=== PATIENT | male | born 1940 | race Caucasian/White ===

== ENCOUNTER 2024-01-12 05:48 | Emergency (ER) | payer OTHER ==
[~2024-01-12] VITALS: Ht 180.3 cm; Wt 79.4 kg
[~2024-01-12 05:48] MED LIST: AMLO5 PO; ASPI325 PO; AVALIDE PO; BISO5 PO; BISOPROL PO; CEPH500 PO; CLOP75 PO; FOLI400 PO; IBUP800 PO; IRBHYD300 PO; LISI20 PO; LISINOPRIL PO; METCELP PO; MULVITMINF PO; OMEGA 3 PO; OXYACE5T PO; POLY17UD PO; PROC10 PO; RANI150 PO; SIMV20 PO; STOMUL PO; TAMS.4ER PO; [UNRECOGNIZED DRUG - OTHER] PO
[2024-01-12 06:24] LABS: BASOPHILS ABSOLUTE AUTO 0.03 K/mm3 (0.00-0.23); BASOPHILS PERCENT AUTO 0 % (0-2); EOSINOPHILS ABSOLUTE AUTO 0.03 K/mm3 (0.00-0.68); EOSINOPHILS PERCENT AUTO 0 % (0-6); Hematocrit 42.6 % (37.0-53.0); Hemoglobin 14.2 g/dL (13.5-17.5); IMMATURE GRAN ABSOLUTE AUTO 0.05 K/mm3 (0.00-0.10); IMMATURE GRAN PERCENT AUTO 0 % (0-1); LYMPHOCYTES ABSOLUTE AUTO 0.75 K/mm3 (0.84-5.20); LYMPHOCYTES PERCENT AUTO 6 % (21-46); MONOCYTES ABSOLUTE AUTO 1.04 K/mm3 (0.16-1.47); MONOCYTES PERCENT AUTO 8 % (4-13); Mean Corpuscular HGB Conc 33.3 g/dL (31.5-36.5); Mean Corpuscular Volume 81 fL (80-100); Mean Platelet Volume 10.1 fL (9.1-12.4); NEUTROPHILS ABSOLUTE AUTO 11.07 K/mm3 (1.96-9.15); NEUTROPHILS PERCENT AUTO 85 % (41-73); Platelet Count 130 K/mm3 (150-400); RDW Coefficient Variation 20.6 % (11.7-14.2); RDW Standard Deviation 57.6 fL (35.1-46.3); Red Blood Cell Count 5.26 M/mm3 (4.30-5.90); White Blood Cell Count 12.97 K/mm3 (4.00-11.30)
[2024-01-12 06:40] LABS: Albumin, Blood 3.7 g/dL (3.4-5.0); Bilirubin, Total 1.1 mg/dL (0.1-1.0); Bun/Creatinine Ratio 22.5 (12.0-20.0); Calcium, Blood 9.6 mg/dL (8.5-10.1); Creatinine, Blood 1.82 mg/dL (0.60-1.20); Globulin, Blood 3.8 g/dL (2.2-4.0); Potassium, Blood 3.6 mmol/L (3.5-5.5); Total Protein, Blood 7.5 g/dL (6.4-8.2)
[2024-01-12] MEDS ORDERED: NS 1,000 ML IV SCH (07:15)
[2024-01-12] MEDS ORDERED: Ondansetron HCl 2 MG / ML 2ML Vial IV ONE (07:15)
[2024-01-12] MEDS ORDERED: Ketorolac Tromethamine 30mg Vial IV ONE (07:15)
[2024-01-12] MEDS ORDERED: SULFAMETHOXAZO1 EAC1 PO (07:18)
[2024-01-12 07:48] LABS: BASOPHILS ABSOLUTE AUTO 0.03 K/mm3 (0.00-0.23); BASOPHILS PERCENT AUTO 0 % (0-2); EOSINOPHILS ABSOLUTE AUTO 0.02 K/mm3 (0.00-0.68); EOSINOPHILS PERCENT AUTO 0 % (0-6); Hematocrit 40.3 % (37.0-53.0); Hemoglobin 13.8 g/dL (13.5-17.5); IMMATURE GRAN ABSOLUTE AUTO 0.06 K/mm3 (0.00-0.10); IMMATURE GRAN PERCENT AUTO 1 % (0-1); LYMPHOCYTES ABSOLUTE AUTO 0.55 K/mm3 (0.84-5.20); LYMPHOCYTES PERCENT AUTO 4 % (21-46); MONOCYTES ABSOLUTE AUTO 0.99 K/mm3 (0.16-1.47); MONOCYTES PERCENT AUTO 8 % (4-13); Mean Corpuscular HGB 27.3 pg (26.0-34.0); Mean Corpuscular HGB Conc 34.2 g/dL (31.5-36.5); Mean Corpuscular Volume 80 fL (80-100); Mean Platelet Volume 10.3 fL (9.1-12.4); NEUTROPHILS ABSOLUTE AUTO 10.94 K/mm3 (1.96-9.15); NEUTROPHILS PERCENT AUTO 87 % (41-73); Platelet Count 126 K/mm3 (150-400); RDW Coefficient Variation 20.5 % (11.7-14.2); RDW Standard Deviation 57.6 fL (35.1-46.3); Red Blood Cell Count 5.06 M/mm3 (4.30-5.90); White Blood Cell Count 12.59 K/mm3 (4.00-11.30)
[2024-01-12 08:02] LABS: Albumin, Blood 3.5 g/dL (3.4-5.0); Albumin/Globulin Ratio 0.9 (0.8-1.8); Calcium, Blood 9.3 mg/dL (8.5-10.1); Creatinine, Blood 1.71 mg/dL (0.60-1.20); Globulin, Blood 3.7 g/dL (2.2-4.0); Magnesium, Blood 2.2 mg/dL (1.6-2.4); Potassium, Blood 3.5 mmol/L (3.5-5.5); Total Protein, Blood 7.2 g/dL (6.4-8.2)
[2024-01-12 09:53] LABS: Source, Urine Clean Catch
[2024-01-12 09:59] LABS: Appearance, Urine Hazy (Clear); Blood, Urine 5+ (Neg); Color, Urine Amber (P-Yellow); Glucose Qualitative, Urine 1+ (Neg); Ketones, Urine 1+ (Neg); Leukocyte Esterase, Urine 2+ (Neg); Nitrite, Urine Pos (Neg); Protein, Urine 3+ (Neg); Specific Gravity, Urine 1.015 (1.003-1.022); Urobilinogen, Urine 2+ (Normal)
[2024-01-12 10:09] LABS: Bilirubin, Urine 1+ (Neg)
[2024-01-12 10:10] LABS: Bacteria Few /hpf; Red Blood Cells, Urine TNTC /hpf (0-2); Squamous Epithelial Cells Not Seen /hpf (Few)
[2024-01-12] MEDS ORDERED: Cefdinir 300 MG Cap PO ONE (11:00)
[2024-01-12 11:35] LABS: Calcium, Ionized (POC) 1.17 mmol/L (1.10-1.46); Chloride (POC) 106 mmol/L (98-108); Creatinine (POC) 1.7 mg/dL (0.8-1.3); Glucose (ISTAT POC) 117 mg/dL (70-99); Hemoglobin (POC) 12.6 g/dL (13.5-17.5); Potassium (POC) 3.9 mmol/L (3.5-5.5); Sodium (POC) 139 mmol/L (135-148); Total CO2 (POC) 25 mmol/L (21-32)
[2024-01-12] MEDS ORDERED: DOCU100 PO (12:12)
[2024-01-12] MEDS ORDERED: SENN187 PO (12:12)
[2024-01-12] MEDS ORDERED: CEFD300 PO (12:12)
[2024-01-12 12:30] VITALS: BP 143/83
[2024-01-29] MEDS ORDERED: CEFP200 PO (02:02)
[2024-01-29] MEDS ORDERED: PROBIOTIC1 EA13 PO (02:03)
[2024-01-29] MEDS ORDERED: LOPE2C PO (02:03)
== END 2024-01-12 13:06 | disposition home or self-care (01) ==
LOC: ER 05:48
PROVIDERS: Student in an Organized Health Care Education/Training Program
DX: N30.90 Cystitis, unspecified without hematuria (principal); N17.9 Acute kidney failure, unspecified; R33.9 Retention of urine, unspecified; Z79.899 Other long term (current) drug therapy; Z79.82 Long term (current) use of aspirin; I10 Essential (primary) hypertension
CPT/HCPCS: 51702; 51798; 74177; 80047; 80053; 81001; 83735; 85014; 85025; 87086; 96361-59; 96374-59; 96375-59; 99284-25; A9270; J1885; J2405; J7030; Q9967

== ENCOUNTER 2024-09-21 08:30 | Day surgery (SDC) | payer OTHER ==
[2024-09-21] VITALS (8 sets, daily range): BP systolic 114–140; BP diastolic 75–101
[~2024-09-21] VITALS: Ht 180.3 cm; Wt 73.5 kg
[~2024-09-21 08:30] MED LIST changes: +ALBU90OI INH; +ATOR40TA PO; +Bisoprolol Fuma10 MG PO; +CEFD300 PO; +CEFP200 PO; +DOCU100 PO; +ELIQUIS5 M2 PO; +FAMO40 PO; +FERSU300 PO; +FURO20 PO; +HYDCHL25 PO; +LOPE2C PO; +LOSA25 PO; +Lasix20 MG PO; +METO25ER PO; +POTA10T PO; +PROBIOTIC1 EA13 PO; +SENN187 PO; +SPIR25 PO; +SULFAMETHOXAZO1 EAC1 PO
[2024-09-21] MEDS ORDERED: Verapamil HCL 2.5 MG/ML 2ML Injection ONE (08:51)
[2024-09-21] MEDS ORDERED: Nitroglycerin 2 MG/20 ML BTL ONE (08:52)
[2024-09-21] MEDS ORDERED: NS 250 ML IV ONE (08:52)
[2024-09-21] MEDS ORDERED: NS 1,000 ML IV ONE (08:52)
[2024-09-21] MEDS ORDERED: Heparin Sodium 1000 Units/ML 10ML MDV ONE (08:52)
[2024-09-21] MEDS ORDERED: FentaNYL Citrate 50 MCG/ML 2 ML Injection ONE (09:46)
[2024-09-21] MEDS ORDERED: Midazolam HCl 1MG / ML 2ML Vial ONE (09:47)
[2024-09-21] MEDS ORDERED: NS 500 ML IV ONE (09:47)
--- NOTE | 2024-09-21 11:11 | NUR ---
PT RETURNED TO RECOVERY ROOM IN [facility]. RIGHT RADIAL TR BAND SITE SOFT NON-TENDER WITH NO HEMATOMA, NO PULSATILE BLEEDING AND RIGHT WRIST BOARD IN PLACE. PT DENIES CHEST PAIN. RIGHT AC VENOUS SITE SOFT NON-TENDER WITH NO HEMATOMA, NO BLEEDING AND INTACT DRESSING IN PLACE. PT'S CAREGIVER IN ROOM. DR MOSS IN ROOM TO SEE PT. CALL LIGHT IN REACH.
--- NOTE | 2024-09-21 11:25 | NUR ---
NO CHANGES TO RIGHT RADIAL OR R AC SITES.
--- NOTE | 2024-09-21 12:10 | NUR ---
NO CHANGES TO R RAD OR R AC SITES.
[2024-09-21] MEDS ORDERED: JARDIANCE10 MG PO (12:16)
--- NOTE | 2024-09-21 13:08 | NUR ---
10 CC OF AIR REMOVED OUT OF NOW DEFLATED RIGHT TR BAND OVER 12 MIN. RIGHT RADIAL TR BAND SITE STILL SOFT NON-TENDER WITH NO HEMATOMA, NO PULSATILE BLEEDING AND RIGHT WRIST BOARD IN PLACE. R AC SITE STILL SOFT NON-TENDER WTTH NO HEMATOMA, NO BLEEDING AND INTACT DRESSING. DISCHARGE INSTURCTIONS REVIEWED ALL QUESTIONS ANSWERED.
--- NOTE | 2024-09-21 13:29 | NUR ---
NO CHANGES TO R TR BAND SITE OR R AC SITE. FULL PROCEDURE REPORT PROVIDED BHARAT Lee RN TO ASSUME CARE OF PT IN RECOVERY ROOM.
--- NOTE | 2024-09-21 14:11 | NUR ---
NO CHANGES TO R RAD OR R AC SITES. DEFLATED R TR BAND REMOVED AND POLYMEM PLACED OVER R RAD SITE WITH R WRIST BOARD IN PLACE. 22 G IV DISCONTINUED FROM LEFT WRIST WITH INTACT CANNULA. PT ESCORTED OUT VIA WHEELCHAIR ESCORT.
== END 2024-09-21 16:53 | disposition home or self-care (01) ==
LOC: MHTC 08:30
DX: I25.10 Atherosclerotic heart disease of native coronary artery without angina pectoris (principal); I27.22 Pulmonary hypertension due to left heart disease; I13.0 Hypertensive heart and chronic kidney disease with heart failure and stage 1 through stage 4 chronic kidney disease, or unspecified chronic kidney disease; N18.30 Chronic kidney disease, stage 3 unspecified; I50.22 Chronic systolic (congestive) heart failure; N40.1 Benign prostatic hyperplasia with lower urinary tract symptoms; R33.8 Other retention of urine; J44.9 Chronic obstructive pulmonary disease, unspecified; I48.0 Paroxysmal atrial fibrillation; E78.5 Hyperlipidemia, unspecified; G47.33 Obstructive sleep apnea (adult) (pediatric); Z79.01 Long term (current) use of anticoagulants; Z79.02 Long term (current) use of antithrombotics/antiplatelets; Z79.899 Other long term (current) drug therapy; Z95.5 Presence of coronary angioplasty implant and graft; Z86.16 Personal history of COVID-19
CPT/HCPCS: 76937; 93456; 99152; C1769; C1887; C1894; J1644; J2250; J3010; J7030; J7040; J7050; Q9967

== ENCOUNTER 2024-12-08 21:08 | Emergency (ER) | payer OTHER ==
[~2024-12-08] VITALS: Ht 172.7 cm; Wt 65.8 kg
[~2024-12-08 21:08] MED LIST changes: +JARDIANCE10 MG PO
[2024-12-08 21:14] VITALS: BP 140/121
== END 2024-12-08 22:52 | disposition home or self-care (01) ==
LOC: ER 21:08
DX: T83.091A Other mechanical complication of indwelling urethral catheter, initial encounter (principal); I10 Essential (primary) hypertension; Z79.899 Other long term (current) drug therapy
CPT/HCPCS: 51700; 51798; 99283

== ENCOUNTER 2025-07-23 10:39 | Emergency (ER) | payer OTHER ==
[~2025-07-23] VITALS: Ht 180.3 cm; Wt 65.3 kg
[2025-07-23 10:48] VITALS: BP 109/75
[2025-07-23 11:11] LABS: BASOPHILS ABSOLUTE AUTO 0.04 K/mm3 (0.00-0.23); BASOPHILS PERCENT AUTO 0 % (0-2); EOSINOPHILS ABSOLUTE AUTO 0.10 K/mm3 (0.00-0.68); EOSINOPHILS PERCENT AUTO 1 % (0-6); Hematocrit 52.1 % (37.0-53.0); Hemoglobin 17.3 g/dL (13.5-17.5); IMMATURE GRAN ABSOLUTE AUTO 0.06 K/mm3 (0.00-0.10); IMMATURE GRAN PERCENT AUTO 1 % (0-1); LYMPHOCYTES ABSOLUTE AUTO 1.17 K/mm3 (0.84-5.20); LYMPHOCYTES PERCENT AUTO 9 % (21-46); MONOCYTES ABSOLUTE AUTO 0.72 K/mm3 (0.16-1.47); MONOCYTES PERCENT AUTO 6 % (4-13); Mean Corpuscular HGB Conc 33.2 g/dL (31.5-36.5); Mean Corpuscular Volume 88 fL (80-100); NEUTROPHILS ABSOLUTE AUTO 10.82 K/mm3 (1.96-9.15); NEUTROPHILS PERCENT AUTO 84 % (41-73); NRBC ABSOLUTE 0.00 K/mm3 (0.00-0.02); NRBC Auto 0.0 /100 WBC (0.0-0.2); Platelet Count 189 K/mm3 (150-400); RDW Coefficient Variation 15.8 % (11.7-14.2); RDW Standard Deviation 50.7 fL (35.1-46.3)
[2025-07-23 11:57] LABS: Alanine Aminotransfer (ALT/SGP 81.0 U/L (12-78); Albumin, Blood 3.6 g/dL (3.4-5.0); Albumin/Globulin Ratio 0.8 (0.8-1.8); Anion Gap 11.0 mmol/L (3-11); Aspartate Aminotrans (AST/SGOT 40.0 U/L (12-37); Bilirubin, Total 0.6 mg/dL (0.1-1.0); Blood Urea Nitrogen 37.0 mg/dL (8-24); CO2, Blood 21.0 mmol/L (21-32); Calcium, Blood 9.3 mg/dL (8.5-10.1); Chloride, Blood 109.0 mmol/L (98-108); Creatinine, Blood 1.49 mg/dL (0.60-1.20); Globulin, Blood 4.4 g/dL (2.2-4.0); Glucose, Blood 153.0 mg/dL (70-99); Potassium, Blood 4.2 mmol/L (3.5-5.5); Sodium, Blood 137.0 mmol/L (136-145); Total Protein, Blood 8.0 g/dL (6.4-8.2)
[2025-07-23 13:51] LABS: Source, Urine Clean Catch
[2025-07-23 13:56] LABS: Bilirubin, Urine Neg (Neg); Color, Urine Yellow (P-Yellow); Glucose Qualitative, Urine 4+ (Neg); Ketones, Urine Neg (Neg); Leukocyte Esterase, Urine 3+ (Neg); Protein, Urine 3+ (Neg); Specific Gravity, Urine 1.015 (1.003-1.022); Urobilinogen, Urine NORM (Normal)
[2025-07-23 14:18] LABS: Red Blood Cells, Urine TNTC /hpf (0-2)
[2025-07-23 14:19] LABS: White Blood Cells, Urine 50-100 /hpf (0-5)
[2025-07-23] MEDS ORDERED: CefTRIAXone Sodium 1,000 MG in NS 100 ML IV ONE (14:50)
[2025-07-23] MEDS ORDERED: CEFD300 PO (15:41)
== END 2025-07-23 15:58 | disposition home or self-care (01) ==
LOC: ER 10:39
PROVIDERS: Emergency Medicine
DX: T83.511A Infection and inflammatory reaction due to indwelling urethral catheter, initial encounter (principal); Y84.6 Urinary catheterization as the cause of abnormal reaction of the patient, or of later complication, without mention of misadventure at the time of the procedure; R53.83 Other fatigue; R53.81 Other malaise; I10 Essential (primary) hypertension; I25.10 Atherosclerotic heart disease of native coronary artery without angina pectoris; Z79.01 Long term (current) use of anticoagulants; Z79.899 Other long term (current) drug therapy
CPT/HCPCS: 51702; 71045; 80053; 81001; 83880; 85025; 87077; 87086; 87186; 93005; 93010; 96374; 99284-25; J0696

== ENCOUNTER → 2025-08-26 | Outpatient (CLI) | payer OTHER ==
[2025-08-26 14:40] LABS: Source, Urine Straight Cath
[2025-08-26 15:59] LABS: Bilirubin, Urine Neg (Neg); Glucose Qualitative, Urine 4+ (Neg); Ketones, Urine Neg (Neg); Leukocyte Esterase, Urine 3+ (Neg); Protein, Urine 2+ (Neg); Specific Gravity, Urine 1.015 (1.003-1.022); Urobilinogen, Urine NORM (Normal)
[2025-08-26 16:17] LABS: Color, Urine Pale Yellow (P-Yellow); White Blood Cells, Urine TNTC /hpf (0-5)
== END ==
LOC: LAB 13:20 → LAB SHORT 13:20
PROVIDERS: Physician Assistant Medical
DX: N39.0 Urinary tract infection, site not specified (principal)
CPT/HCPCS: 81001; 87077; 87086; 87186